=== PATIENT | female | born 1965 | race Caucasian/White ===

== ENCOUNTER 2025-02-01 13:34 | Emergency (ER) | payer OTHER, SELFPAY ==
[2025-02-01 13:41] VITALS: BP 122/86
[2025-02-01 14:04] LABS: Hematocrit 37.1 % (37.0-47.0); Hemoglobin 12.9 g/dL (12.0-16.0); Mean Corp Hgb Conc. 34.8 g/dL (33.0-37.0); Mean Corpuscular Volume 85.7 fL (81.0-99.0); Nucleated Red Blood Cells % 0 %; Platelet Count 192 10^3/uL (130-400); Red Cell Dist. Width 12.1 % (11.5-14.5)
[2025-02-01 14:16] LABS: ALT (SGPT) 11 U/L (0-35); AST (SGOT) 32 U/L (14-36); Albumin 4.2 g/dl (3.5-5.0); Alkaline Phosphatase 102 U/L (38-126); Blood Urea Nitrogen 7 mg/dl (7-17); Calcium 8.6 mg/dl (8.4-10.2); Carbon Dioxide 27 mmol/L (22-30); Chloride 105 mmol/L (98-107); Glucose 151 mg/dl (70-99); Lipase 88 U/L (23-300); Potassium 3.6 mmol/L (3.5-5.1); Sodium 137 mmol/L (135-145); Total Protein 6.7 g/dl (6.3-8.2); eGFR > 60.00
[2025-02-01 14:20] LABS: INR 0.99; PT 13.4 Sec (11.4-14.6)
[2025-02-01 14:21] LABS: APTT 28.5 Sec (23.4-35.0)
[2025-02-01 17:00] VITALS: BMI 24.4
[2025-02-01 17:11] VITALS: BP 133/85
--- NOTE | 2025-02-02 00:16 | ED.GENMED ---
History of Present Illness
General
Chief Complaint: Rectal Bleeding
Time Seen by Provider: 02/01/25 16:29
History of Present Illness
History of Present Illness:
see MDM
Past History
Past History
ED Past Medical History: Other (Colitis) and Other (Fibromyalgia)
ED Past Surgical History: Appendectomy, Cholecystectomy and
Social History
Personal: Single
Phy Exam
Physical Exam
Physical Exam:
see MDM
Course
Orders/Labs/Results
Orders:
Orders
02/01/25 13:51
Type And Crossmatch [Type+Screen] Urgent
Complete Blood Count/With Diff Urgent
Comprehensive Metabolic Panel Urgent
Lipase Urgent
PTT Urgent
Prothrombin Time Urgent
02/01/25 17:03
Abdominal Series [CR Obstruct Series W/pa Chest] Urgent
Comment:
Reason For Exam: constipation
Abnormal Lab Results
02/01/25
13:51
MPV 10.6 H fL
(7.4-10.4)
Glucose 151 H mg/dl
(70-99)
02/01/25 13:51
02/01/25 13:51
Vital Signs
Initial and Last Documented VS:
Initial Vital Signs
Temp Pulse Resp BP Pulse Ox
36.4 C 113 16 122/86 96
02/01/25 13:41 02/01/25 13:41 02/01/25 13:41 02/01/25 13:41 02/01/25 13:41
Last Documented Vital Signs
Temp Pulse Resp BP Pulse Ox
37.0 C 82 20 133/85 100
02/01/25 17:11 02/01/25 17:11 02/01/25 17:11 02/01/25 17:11 02/01/25 17:11
MDM/Problems Addressed
Differential Diagnosis Includes:
see MDM
MDM/Problems Addressed:
Note:
CHIEF COMPLAINT(S)
Blood in stool and constipation.
HISTORY OF PRESENT ILLNESS
The patient is a 59-year-old female presenting with blood in her stool and constipation that has been ongoing for the past couple of months. She describes the blood as dark, although not black, and reports difficulty having bowel movements, stating
she is vitaly if she goes once a week. This pattern of constipation is new for her in the last few months. She takes various nvri-njl-rfzdhcd remedies, including Docusate, Lactulose, and Metamucil, to manage her symptoms, but with limited success.
The patient denies the use of opiates or iron supplements, which could contribute to her symptoms.
She has a family history of colon cancer in an aunt and bladder cancer in her brother. Previous colonoscopy performed five years ago was reported to be normal. The patient expresses concern over the persisting severity of symptoms and reports
spending extended periods in the bathroom without success. She denies the presence of external hemorrhoids and experiences pain when having bowel movements, which she describes as hard.
INITIAL EVALUATION
Blood work was performed, revealing normal hemoglobin levels, indicating the patient is not anemic. Kidney function tests, including BUN, are within normal limits, suggesting no evidence of significant gastrointestinal bleeding from other sources.
PAST MEDICAL AND SURGICAL HISTORY
The patient has undergone multiple abdominal surgeries, including appendectomy, right ovarian removal, and two sections.
FAMILY HISTORY
There is a family history of colon cancer in her aunt and bladder cancer in her brother.
PHYSICAL EXAM
GENERAL: Alert , in no apparent distress
EYE: pupils equal and reactive
NECK: Supple
ENT: o/p clr, mmm.
CARDIAC: Regular rate and rhythm .
LUNGS: Clear breath sounds bilaterally, no acute respiratory distress, no wheezes/rales/rhonchi
ABDOMEN: Soft, without focal tenderness, no r/g, no cvat, normal bowel sounds
: SMALL EXTERNAL NONBLEEDING HEMORRHOIDS; NO INTERNAL HEMORRHOIDS CONFIRMED; STOOL IS LIGHT BROWN AND HEME NEG
NEUROLOGICAL: Alert and oriented, no focal neuro deficits
SKIN: Warm and dry, skin intact.
MUSCULOSKELETAL: No edema, well perfused. neg nina's sign
PSYCH: Normal and appropriate interaction.
Nursing notes reviewed and vital signs reviewed.
PLAN
The patient will need a referral to a colorectal specialist for further evaluation, including the possibility of a colonoscopy to assess for colon cancer or other causes of her symptoms. Consideration for treatment of possible hemorrhoids may be
necessary.
DIFFERENTIAL DIAGNOSIS
The Differential Diagnosis includes, in no particular order and is not limited to:
1. Hemorrhoids
2. Colorectal cancer
3. Anal fissures
4. Diverticulitis
5. Inflammatory bowel disease
6. Infectious colitis
7. Ischemic colitis
8. Iron deficiency anemia (in the absence of anemia currently observed)
9. Gastrointestinal bleeding from a peptic ulcer (though less likely given negative test results)
10. Lower gastrointestinal tract obstruction (due to possible adhesions from previous surgeries)
CARE-UPDATE
02/01/25 - 18:29
case d/w ed attending
1 mo painless rectal bleeding with constipation/bowel movemetns that are infrequent and firm
has had consptaiotn for months
tried OTC 'everythign' without relief
multiple previous surgieries
not ehre because of worsening bleeding today
last episode was 2 days ago
but boyfriend told her to come in.
nontender abdomen with heme neg brown stool, totally stable labs, hg 12.9, bun normal
The patients recent x-ray shows a significant presence of stool and gas, indicating discomfort but not a bowel obstruction. A stronger laxative will be prescribed, and Metamucil is recommended for stool softening. Increased water intake should
accompany this regimen. The patient will receive the contact information for colorectal specialists for further evaluation, especially regarding possible hemorrhoids THAT MAY BE CAUSING SYMPTOMS, HER PRIAMRY ISSUE IS CONSTIPATOIN WHICH IS
CHRONIC. Suppositories such as Preparation H are recommended to address presumed internal hemorrhoid bleeding. The patient is advised on recognizing signs of bowel obstruction due to adhesions and is at risk because of past surgeries. A follow-up
appointment for a colonoscopy and further colorectal evaluation is suggested, with scheduling coordinated through the family doctor.
pt requested refill of gabapentin for her fibromylagia
usually used 300 mg HS
short term rx given
lactulose for constipation
*Pulse Oximetry
SaO2: 100
Oxygen Mode of Delivery: Room air
Patient hypoxic: no (100)
*Critical Care Note
Total Time (30-74mins, 75-104mins- exclusive of procedures): Not Applicable
ED Attending Note
-
Portions of this chart may have been created with voice recognition software.� Occasional wrong word or��sound alike� substitutions may have occurred due to the inherent limitations of voice recognition software.
Discharge Plan
Departure
Patient Disposition: Home (Routine Discharge)
Date of Disposition: 02/01/25
Time of Disposition: 18:23
Patient with high blood pressure during this ER visit?: No
Condition: Fair
Covid-19: Not Applicable
Discharge Problem:
Constipation, Rectal bleed
Instructions: Constipation, Adult (DC), Hemorrhoids (DC)
Prescriptions:
New
lactulose 10 gram/15 mL solution
20 g PO DAILY Qty: 300 0RF
Rx Instructions:
30 ML ONCE A DAY PO OR ONCE EVERY OTHER DAY
gabapentin 100 mg capsule
100 mg PO HS Qty: 20 0RF
Rx Instructions:
TAKE 100 MG PO QHS, MAY INCREASE TO 300 MG PO QHS
Preparation H (pe) 0.25 % suppository
1 supp MI HS PRN (Reason: hemorrhoids) Qty: 12 0RF
No Action
polyethylene glycol 3350 [Miralax] 17 gram Powder In Packet
17 g PO DAILYPRN PRN (Reason: constipation)
alprazolam [Xanax] 0.5 mg Tablet
0.5 mg PO TIDPRN PRN (Reason: anxiety)
bisacodyl [Dulcolax (bisacodyl)] 10 mg Suppository
10 mg MI DAILYPRN PRN (Reason: constipation)
ibuprofen [Advil] 200 mg Tablet
600 mg PO Q6HPRN PRN (Reason: mild pain)
gabapentin 300 mg Capsule
300 mg PO HS
bisacodyl [Dulcolax (bisacodyl)] 5 mg Tablet,Delayed Release (Dr/Ec)
10 mg PO DAILYPRN PRN (Reason: constipation)
Referrals:
Joel Terry MD [Active, ColoRectal] - Follow up in 5-7 days
PRIVATE,PHYSICIAN [Family Provider, Internal Medicine]
Activity Restrictions/Additional Instructions:
YOUR SYMPTOMS ARE PROBABLY DUE TO CONSTIPATION AND HEMORRHOIDS
BUT YOU NEED TO HAVE COLONOSCOPY AN OUTPATIENT TO BE SURE THAT YOU DO NOT HAVE COLON CANCER
YOUR BLOOD WORKW REASSURING
TRY LACTULOSE ONCE A DAY OR ONCE EVERY OTHER DAY FOR CONSTIPATION
ALSO TAKE METAMUCIL AT LEAST ONCE A DAY EVERY DAY
FOR THE POSSIBLE HEMORROHID, USE A SUPPOSITORY PREPARATION H ONCE A DAY NEEDED FOR RECTAL BLEEDING FOR 3-5 DAYS
DRINK MORE FLUIDS
FOR YOUR CHROINC PAIN, YOU CAN USE THE GABAPENTIN 100 MG AT NIGHT
DO THIS FOR 2 NIGHTS THEN YOU CAN INCREASE TO MAXIMUM OF 300 MG AT NIGHT TOELRATED
RETURN FOR ANY CONCERNS
OTHERWISE SEE COLORECTAL
Interventions
Interventions:
*Risk Screen - Suicide Last Done: 02/01/25 17:11
*General Assessment Last Done: 02/01/25 17:11
*Neglect/Abuse Screening Last Done: 02/01/25 17:11
*ED- Fall Risk Assessment Last Done: 02/01/25 17:11
*ED COVID-19 Vaccine History Last Done: 02/01/25 17:11
*Nursing Disposition Last Done: 02/01/25 18:31
[facility] Assessment Last Done: 02/01/25 17:11
ED- Cardiac Assessment Last Done: 02/01/25 17:11
ED- Pulmonary Assessment Last Done: 02/01/25 17:11
Discharge Date and Time
Discharge Date/Time: 02/01/25 18:37
Print Language: AMHARIC
== END 2025-02-01 18:37 | disposition home or self-care (01) ==
LOC: EMR 13:34
PROVIDERS: EMERGENCY PHYSICIAN Emergency Medicine
DX: K59.00 Constipation, unspecified (principal); K62.5 Hemorrhage of anus and rectum; M79.7 Fibromyalgia
CPT/HCPCS: 99284; 74022; 80053; 83690; 85025; 85610; 85730; 86850; 86900; 86901